=== PATIENT | female | born 1985 | race Two or more races ===

== ENCOUNTER 2018-02-23 09:25 | Emergency (ER) | payer OTHER ==
[~2018-02-23] VITALS: Ht 165.1 cm; Wt 60.3 kg
[2018-02-23 09:36] VITALS: Ht 165.1 cm; Wt 60.3 kg
[2018-02-23 11:11] LABS: BASOPHIL % 0.5 % (0-2); PLATELET COUNT 279 x10^3mcL (130-400)
[2018-02-23 11:18] LABS: rbc morphology (normal/abnorm) ABNORMAL (NORMAL)
[2018-02-23 11:45] VITALS: BP 125/79
== END 2018-02-23 12:29 | disposition home or self-care (01) ==
LOC: ED 09:25
PROVIDERS: Emergency Medicine
DX: O20.0 Threatened abortion (principal); Z3A.12 12 weeks gestation of pregnancy; D64.9 Anemia, unspecified; Z86.2 Personal history of diseases of the blood and blood-forming organs and certain disorders involving the immune mechanism; Z88.6 Allergy status to analgesic agent
CPT/HCPCS: 36415